=== PATIENT | female | born 1975 ===

== ENCOUNTER 2016-08-08 08:40 | Day surgery (SDC) | payer OTHER ==
[2016-08-08] VITALS (10 sets, daily range): BP systolic 105–121; BP diastolic 61–79
[~2016-08-08] VITALS: Ht 162.6 cm; Wt 86.2 kg
--- NOTE | 2016-08-08 07:22 | Pre-Procedure Note/Attestation ---
Pre-Procedure Note/Attestation Complete Prior to Procedure Planned Procedure: right Procedure Narrative: shoulder arthroscopy rc repair, sad Indications for Procedure Pre-Operative Diagnosis: left shoulder rct, impingement Attestation I attest that I discussed the nature of the procedure; its benefits; risks and complications; and alternatives (and the risks and benefits of such alternatives ), prior to the procedure, with the patient (or the patient's legal sales and service representative). I attest that, if there was a reasonable possibility of needing a blood transfusion, the patient (or the patient's legal sales and service representative) was given the [facility] standardized written summary, pursuant to the [place] Blood Safety Act ([place] Health and Safety Code # 1645, as amended). I attest that I re-evaluated the patient just prior to the surgery and that there has been no change in the patient's H&P, except as documented below: BRIDGER VASQUEZ August 08, 2016 07:22
--- NOTE | 2016-08-08 07:23 | Operative Note - PDOC ---
Operative Note Operative Note Pre-op Diagnosis: left shoulder rct, impingement Procedure: see op report Post-op Diagnosis: same as pre-op plus Operative Findings: consistent w/pre-op dx studies Anesthesia: MAC Specimen: none Complications: none Condition: stable Estimated Blood Loss: none Drains: none Implant(s) used?: No BRIDGER VASQUEZ August 08, 2016 07:23
[~2016-08-08 08:40] MED LIST: NKM; ceFAZolin 1gm in D5W 55ml IVP ONE; celeBREX 200mg Cap **SURGERY PATIENTS ONLY ORAL ONE; oxyCONTIN 20mg tab ORAL ONE
[2016-08-08] MEDS ORDERED: LR 1000ml 1,000 ML IVLG SCH (10:59)
--- NOTE | 2016-08-08 10:59 | Anethesia Preoperative Eval ---
Anesthesia Pre-op PMH/ROS General Date of Evaluation: August 08, 2016 Time of Evaluation: 11:33 Anesthesiologist: Sachin ASA Score: ASA 2 Mallampati Score Class I : Soft palate, uvula, fauces, pillars visible Class II: Soft palate, uvula, fauces visible Class III: Soft palate, base of uvula visible Class IV: Only hard plate visible Mallampati Classification: Class II Surgeon: Gianfranco Diagnosis: R Shoulder Pain Surgical Procedure: R Shoulder Arthroscopy Anesthesia History: none Family History: no anesthesia problems Allergies: Coded Allergies: No Known Allergies (Unverified , 08/07/16) Medications: see eMAR Past Medical History Other: obesity - BMI 32 PSxH Narrative: L Breast Cystectomy Anesthesia Pre-op Phys. Exam Physician Exam Last Vital Signs Date Time Temp Pulse Resp B/P Pulse Ox O2 Delivery O2 Flow Rate FiO2 08/08/16 09:14 97.5 70 20 105/68 96 Room Air Constitutional: NAD Neurologic: CN 2-12 intact Cardiovascular: RRR Respiratory: CTA Gastrointestinal: S/NT/ND Airway Exam Mallampati Score: Class II MO: full ROM: full Teeth: intact Anesthesia Pre-op A/P Pre-Antibiotics Dru Grams Ancef IV Given Within 1 Hr of Incision: Yes Time Given: 11:56 Barry Stephenson MD August 08, 2016 10:59
[2016-08-08] MEDS ORDERED: Metoclopramide 10mg/2ml Inj IVP PRN (11:00)
[2016-08-08] MEDS ORDERED: DiphenhydrAMINE 50mg/ml Inj IVP PRN (11:00)
[2016-08-08] MEDS ORDERED: fentaNYL 100 mcg/2 mL IV PRN (11:00)
[2016-08-08] MEDS ORDERED: Norco 5mg/325mg tab ORAL PRN ×2 (11:00→16:01)
[2016-08-08] MEDS ORDERED: Ketorolac 30mg Inj IV PRN (11:00)
[2016-08-08] MEDS ORDERED: Norco 7.5mg/325mg tab ORAL PRN (11:00)
[2016-08-08] MEDS ORDERED: Meperidine 25mg/0.5ml Inj IV PRN (11:00)
[2016-08-08] MEDS ORDERED: Oxycodone/Acetaminophen 5-325 ORAL PRN (11:00)
[2016-08-08] MEDS ORDERED: LORazepam Inj 2mg/ml 1ml IV PRN (11:00)
[2016-08-08] MEDS ORDERED: Hydromorphone 0.5mg/0.5ml inj IVP PRN (11:00)
[2016-08-08] MEDS ORDERED: Midazolam 2mg/2ml Inj IVP PRN (11:00)
[2016-08-08] MEDS ORDERED: Ketorolac 60mg Inj IV PRN (11:00)
[2016-08-08] MEDS ORDERED: Atropine Inj 1mg/10ml Syr IV PRN (11:00)
[2016-08-08] MEDS ORDERED: Ropivacaine 5mg/ml Vial 20ml INJ ONE (11:27)
[2016-08-08] MEDS ORDERED: NS Irrig 4000ml IRRIG ONE (11:30)
[2016-08-08] MEDS ORDERED: LR 1000ml ONE (11:30)
[2016-08-08] MEDS ORDERED: Labetalol 5mg/ml 20ml vial IV ONE (11:30)
[2016-08-08] MEDS ORDERED: Dexamethasone 4mg/ml vial ONE (11:30)
[2016-08-08] MEDS ORDERED: Alfentanil 2ml Inj ONE (11:30)
[2016-08-08] MEDS ORDERED: Midazolam 2mg/2ml Inj ONE (11:30)
[2016-08-08] MEDS ORDERED: Lidocaine 1% MPF 10mg/ml 5ml ONE (11:30)
[2016-08-08] MEDS ORDERED: Propofol 10mg/ml 20ml IV ONE (11:30)
[2016-08-08] MEDS ORDERED: Bupivacaine w/Epi 0.25% 30ml Vial INJ ONE (11:53)
[2016-08-08] MEDS ORDERED: EPINEPHrine 1mg/1ml Amp ONE (11:53)
--- NOTE | 2016-08-08 12:18 | Immediate Post-Op Evaluation ---
Immediate Post-Op Evalulation Immediate Post-Op Evalulation Procedure: R Shoulder Arthroscopy Date of Evaluation: August 08, 2016 Time of Evaluation: 13:32 IV Fluids: 1100 LR Blood Products: 0 Estimated Blood Loss: 10 Urinary Output: 0 Blood Pressure Systolic: 109 Blood Pressure Diastolic: 67 Pulse Rate: 81 Respiratory Rate: 16 O2 Sat by Pulse Oximetry: 98 Temperature (Fahrenheit): 97.1 Pain Score (1-10): 0 Nausea: No Vomiting: No Complications 0 Patient Status: awake, reacts, patent, extubated, none Hydration Status: adequate Dru Grams Ancef IV Given Within 1 Hr of Incision: Yes Time Given: 11:56 Barry Stephenson MD August 08, 2016 12:18
--- NOTE | 2016-08-08 12:19 | 48 Hour Post Anesthesia Eval ---
Post Anesthesia Evaluation Procedure: R Shoulder Arthroscopy Date of Evaluation: August 08, 2016 Time of Evaluation: 15:41 Blood Pressure Systolic: 122 0: 68 Pulse Rate: 78 Respiratory Rate: 18 Temperature (Fahrenheit): 97.5 O2 Sat by Pulse Oximetry: 99 Airway: patent Nausea: No Vomiting: No Pain Intensity: 1 Hydration Status: adequate Cardiopulmonary Status: Stable Mental Status/LOC: patient returned to baseline Follow-up Care/Observations: 0 Post-Anesthesia Complications: 0 Follow-up care needed: ready to discharge Barry Stephenson MD August 08, 2016 12:19
[2016-08-08] MEDS ORDERED: HYDROmorphone 1mg/ml Carpuject SUBQ PRN (16:01)
[2016-08-08] MEDS ORDERED: Tylenol #3 tab (300mg/30mg) ORAL PRN (16:01)
[2016-08-08] MEDS ORDERED: D5 1/2NS 1,000 ML IV SCH (16:01)
--- NOTE | 2016-08-08 22:39 | Operative Note - Dictated ---
DATE OF OPERATION: 08/08/2016 PREOPERATIVE DIAGNOSES: 1. Right shoulder high grade/full-thickness rotator cuff tear. 2. Subdeltoid bursitis impingement syndrome. POSTOPERATIVE DIAGNOSES: 1. Right shoulder high grade/full-thickness rotator cuff tear. 2. Subdeltoid bursitis impingement syndrome. PROCEDURES PERFORMED: 1. Left shoulder arthroscopy status post debridement. 2. Subacromial decompression bursectomy. SURGEON: Kapil Medel M.D. ANESTHESIA: Left interscalene with general. INDICATION FOR PROCEDURE: This is a pleasant 41-year-old female, who has a right shoulder pain. An MRI, which showed area of partial rotator cuff tear along the infraspinatus. She had some evidence of subdeltoid bursitis. She failed conservative treatment and would like to undergo right shoulder arthroscopy. Possible rotator cuff repair verses debrided with subacromial decompression. Risks, limitations, expectations and complications of the procedure were discussed in detail. All questions were addressed. DESCRIPTION OF PROCEDURE: An informed consent was obtained. The patient was taken to the operating room and placed under interscalene and general anesthesia. The patient was then carefully placed in a beach-chair position. Right shoulder was prepped and draped in a sterile manner. Time-out was performed. The skin was incised with 0.25% Marcaine with epinephrine. Inferolateral stab incision was then made. Trocar was introduced into the glenohumeral joint. There was some chondral damage and anterior labrum appeared to be intact. There is a partial articular-sided rotator cuff tear. She was then placed into the glenohumeral joint and debridement of this area was performed. Once debridement was completed, it appeared like there is a partial lateral full thickness rotator cuff tear. At this point, the camera was repositioned in the subacromial space. Complete bursectomy was performed. The undersurface of the acromion was identified. Acromioplasty was started from lateral medial and completed from posterior to anterior. Once that was completed, bursectomy was completed posteriorly. First the side of the rotator cuff appeared to be intact. At this point, the instruments were removed. Portal sites were closed with 3-0 Monocryl sutures. Steri-Strips and a sterile dressing was applied. The patient was awoken and taken to the recovery room with stable vital signs. EBL: Minimal. COMPLICATIONS: None. SPECIMENS: None. IMPLANTS: None. Kapil Medel M.D. DR: THOR JOB#: [id number] CC: [place]
== END 2016-08-08 16:25 | disposition home or self-care (01) ==
LOC: SUR 08:40
DX: S46.011A Strain of muscle(s) and tendon(s) of the rotator cuff of right shoulder, initial encounter (principal); W19.XXXA Unspecified fall, initial encounter; Y92.512 Supermarket, store or market as the place of occurrence of the external cause; Y99.9 Unspecified external cause status; M71.9 Bursopathy, unspecified; M75.41 Impingement syndrome of right shoulder; G43.909 Migraine, unspecified, not intractable, without status migrainosus; E66.9 Obesity, unspecified; Z68.33 Body mass index [BMI] 33.0-33.9, adult
CPT/HCPCS: 29822; 29826; J0171; J0690; J1100; J2250; J2405; J2704; J2795; J3490; J7120; 94003; 94150